=== PATIENT | female | born 1985 | race Caucasian/White ===

== ENCOUNTER → 2016-11-16 | Outpatient (CLI) | payer OTHER ==
[~2016-11-16] MED LIST: GASTROGRAFIN SOLUTION 30ML (Q9963) As Ordered ONE; ISOVUE-370 76% 100ML VIAL (Q9967) As Ordered ONE
--- NOTE | 2016-11-16 14:44 | REP ---
Clinical: Acute right lower quadrant pain. Technique: Axial contrast enhanced images from the lung bases to the pubic symphysis using oral and 100 ml Isovue 370 intravenous contrast material with coronal and sagittal re-formations. Comparison: 10/02/2013. Findings: Lung bases are clear. Visualized heart and pericardium normal. Liver, spleen, pancreas, gallbladder, bilateral adrenal glands and kidneys are normal. The enteric system including stomach, small and large bowel is without obstruction or definite acute inflammatory process. A normal terminal ileum and appendix are identified in the right lower quadrant. Colonic and sigmoid diverticula noted without acute diverticulitis. Subtle mural thickening to the ascending and proximal transverse colon may reflect a mild colitis and should be correlated clinically. Pelvis demonstrates normal bladder and evidence of prior hysterectomy. No ascites. No free air. No adenopathy. Abdominal aorta without aneurysm or dissection. Surrounding musculoskeletal structures are without focal osseous abnormality Impression: 1. Cannot exclude mild ascending colitis and correlation is recommended. 2. Diverticulosis without acute diverticulitis. 3. Normal terminal ileum and appendix without evidence for appendicitis. 4. No free fluid, free air, or adenopathy. Signed by Billy Mack MD 11/16/2016 02:36 P
== END ==
LOC: M RAD 12:04
PROVIDERS: ATTEND Physician Assistant
DX: R10.31 Right lower quadrant pain (principal)